=== PATIENT | female | born 1975 | race Two or more races ===

== ENCOUNTER 2022-09-08 20:21 | Emergency (ER) | payer OTHER ==
[~2022-09-08] VITALS: Ht 149.9 cm; Wt 100.4 kg
[2022-09-08 20:28] VITALS: BP 108/74
== END 2022-09-08 23:30 | disposition left against medical advice (07) ==
LOC: ER 20:21
DX: Z53.21 Procedure and treatment not carried out due to patient leaving prior to being seen by health care provider (principal)

== ENCOUNTER 2023-01-16 18:02 | Emergency (ER) | payer OTHER ==
[~2023-01-16] VITALS: Ht 152.4 cm; Wt 99.0 kg
[2023-01-16] MEDS ORDERED: KETOROLAC 60MG/2ML VIAL IM ONE (20:15)
[2023-01-16] MEDS ORDERED: HYDROCODONE/ACETAMINOPHEN 5/325MG TABLET PO ONE (22:00)
[2023-01-16] MEDS ORDERED: HYDR-4001 MT (22:03)
[2023-01-16] MEDS ORDERED: IBUP-2029 MT (22:03)
[2023-01-16 22:22] VITALS: BP 140/75
[2023-01-17] MEDS ORDERED: T3 PO (01:15)
== END 2023-01-16 22:29 | disposition home or self-care (01) ==
LOC: ER 18:14
DX: S50.01XA Contusion of right elbow, initial encounter (principal); M25.421 Effusion, right elbow; Z87.81 Personal history of (healed) traumatic fracture; W01.0XXA Fall on same level from slipping, tripping and stumbling without subsequent striking against object, initial encounter; Y93.89 Activity, other specified; Y92.89 Other specified places as the place of occurrence of the external cause
CPT/HCPCS: 73080; 73090; 99284; A4565